=== PATIENT | female | born 1960 | race Caucasian/White ===

== ENCOUNTER 2018-03-25 17:14 | Inpatient (IN) | payer OTHER ==
[2018-03-25 17:14] VITALS: BMI 19.1
[2018-03-25] MEDS ORDERED: Albuterol-Ipratrop 3 mg / 0.5 (3 ml) UD IH STA (19:21)
--- NOTE | 2018-03-25 20:10 | ED PDOC ---
Arrival/HPI - General Chief Complaint: Psychiatric Evaluation Historian: Patient - History of Present Illness Narrative History of Present Illness (Text): 03/25/18 20:11 58yo female with pmhx of anxiety, GERD who present with complaint of anxiety and depression.. States she became depressed when she found out that she will be evicted from her apartment, saw her psychiatrists who referred her to ED. She reports chest tightness, states she usually takes Prednisone, but didn't take it because she was upset. Also states she uses inhaler for her Asthma, but did not uses it today. Reports wheezing x days. Denies fever, chills, SI/HI, hallucination, any other complaint. Past Medical History - Provider Review Nursing Documentation Reviewed: Yes - Cardiac Hx Cardiac Disorders: No (DENIES BUT ON LIPITOR) - Pulmonary Hx Respiratory Disorders: No - Neurological Hx Neurological Disorder: No - HEENT Hx HEENT Disorder: No - Renal Hx Renal Disorder: Yes Hx Kidney Stones: Yes - Endocrine/Metabolic Hx Endocrine Disorders: No - Hematological/Oncological Hx Blood Disorders: No - Integumentary Hx Dermatological Disorder: No - Musculoskeletal/Rheumatological Hx Musculoskeletal Disorders: Yes Hx Herniated Disk: Yes Hx Osteoporosis: Yes Other/Comment: BACK AND NECK PROBLEMS - Gastrointestinal Hx Gastrointestinal Disorders: No - Genitourinary/Gynecological Hx Genitourinary Disorders: No - Psychiatric Hx Psychophysiologic Disorder: Yes Hx Anxiety: Yes Hx Depression: Yes Hx Panic Disorder: Yes Hx Substance Use: No - Surgical History Other/Comment: HEMORRHOIDECTOMY - Anesthesia Hx Anesthesia: Yes Hx Anesthesia Reactions: No Hx Malignant Hyperthermia: No Family/Social History - Physician Review Nursing Documentation Reviewed: Yes Family/Social History: Unknown Family HX Smoking Status: Light Smoker < 10 Cigarettes Daily Hx Alcohol Use: Yes Hx Substance Use: No Allergies/Home Meds Allergies/Adverse Reactions: Allergies No Known Allergies Allergy (Verified 05/22/17 07:59) Home Medications: Home Meds Medication Instructions Recorded Confirmed ALPRAZolam [Xanax] 2 mg PO BID 05/22/17 03/25/18 Paroxetine HCl [Paxil] 20 mg PO DAILY 05/22/17 03/25/18 RX: Aspirin 81 mg PO DAILY 05/22/17 03/25/18 Ergocalciferol [Drisdol 50,000 1 cap PO Q7D 03/25/18 03/25/18 Intl Units Cap] Omeprazole 1 cap PO DAILY 03/25/18 03/25/18 RX: Celecoxib [celeBREX] 1 cap PO BID PRN 03/25/18 03/25/18 RX: Gabapentin [Neurontin] 1 cap PO BID 03/25/18 03/25/18 RX: Gabapentin [Neurontin] 1 cap PO BID 03/25/18 03/25/18 Review of Systems - Physician Review All systems were reviewed & negative as marked: Yes - Review of Systems Constitutional: Normal Eyes: Normal ENT: Normal Respiratory: Normal Cardiovascular: Normal Gastrointestinal: Normal Genitourinary Female: Normal Musculoskeletal: Normal Skin: Normal Neurological: Normal Endocrine: Normal Hemo/Lymphatic: Normal Psychiatric: Anxiety, Depression Physical Exam Vital Signs Reviewed: Yes Vital Signs Temp Pulse Resp BP Pulse Ox 03/25/18 19:41 97.6 F 66 18 143/90 96 Temperature: Afebrile Blood Pressure: Normal Pulse: Regular Respiratory Rate: Normal Appearance: Positive for: Well-Appearing, Non-Toxic, Comfortable, Other (Teary) Pain Distress: None Mental Status: Positive for: Alert and Oriented X 3 - Systems Exam Head: Present: Atraumatic, Normocephalic Pupils: Present: PERRL Extroacular Muscles: Present: EOMI Conjunctiva: Present: Normal Mouth: Present: Moist Mucous Membranes Neck: Present: Normal Range of Motion Respiratory/Chest: Present: Clear to Auscultation, Good Air Exchange, Wheezes (Diffuse expiratory wheeze). No: Respiratory Distress, Accessory Muscle Use, Decreased Breath Sounds, Retracting, Rhonchi Cardiovascular: Present: Regular Rate and Rhythm, Normal S1, S2. No: Murmurs Abdomen: No: Tenderness, Distention, Peritoneal Signs Back: Present: Normal Inspection Upper Extremity: Present: Normal Inspection. No: Cyanosis, Edema Lower Extremity: Present: Normal Inspection. No: Edema Neurological: Present: GCS=15, CN II-XII Intact, Speech Normal Skin: Present: Warm, Dry, Normal Color. No: Rashes Psychiatric: Present: Alert, Oriented x 3, Normal Insight, Normal Concentration, Depressed Mood Medical Decision Making ED Course and Treatment: 03/26/18 00:14 PT present to ED for stated history. she appeared depressed, teary in ED Labs EKG CXR PES Lab was reviewed and was nonspecific. UDS + THC EKG NSR @ 64bpm CXR NAD PT was medically cleared in ED for psych evaluation she was seen in ED by JANNETTE Abreu. JANNETTE Abreu DC with the tuyere fitter and pt was admitted to Dr. Hollins. While in ED pt reported history of hemorrhoid . States she usually apply lidocaine cream to the area, but didn't have it with her. she requested for a cream and Anusol cream was given. Her Lung exam improved in ED. She smokes tobacco. She was not hypoxic in ED. - RAD Interpretation Radiology Orders: 03/25/18 19:20 CHEST PORTABLE [RAD] Stat - Medication Orders Current Medication Orders: Discontinued Medications Albuterol/Ipratropium (Duoneb 3 Mg/0.5 Mg (3 Ml) Ud) 3 ml IH STAT STA Stop: 03/25/18 19:22 Albuterol/Ipratropium (Duoneb 3 Mg/0.5 Mg (3 Ml) Ud) 3 ml IH STAT STA Stop: 03/25/18 19:22 Disposition/Present on Arrival - Present on Arrival Any Indicators Present on Arrival: No History of DVT/PE: No History of Uncontrolled Diabetes: No Urinary Catheter: No History of Decub. Ulcer: No History Surgical Site Infection Following: None - Disposition Have Diagnosis and Disposition been Completed?: Yes Diagnosis: Depression, Anxiety, Asthma, Hemorrhoid Disposition: HOSPITALIZED Disposition Time: 21:50 Patient Plan: Admission Patient Problems: Current Active Problems Problem Status Onset Anxiety Acute Asthma Acute Depression Acute Hemorrhoid Acute Condition: FAIR
[2018-03-25 20:13] LABS: BASO # 0.02 K/mm3 (0.0-2.0); BASO % 0.2 % (0.0-3.0); EOS # 0.1 (0.0-0.7); EOS % 0.7 % (1.5-5.0); GRAN # 8.14 (1.4-6.5); GRAN % 65.4 % (50.0-68.0); HEMOGLOBIN 14.3 g/dL (12.0-16.0); LYMPH # 3.1 (1.2-3.4); LYMPH % 25.2 % (22.0-35.0); MEAN CELL VOLUME 90.1 fl (80.0-105.0); MEAN CORPUSCULAR HEMOGLOBIN 30.8 pg (25.0-35.0); MEAN CORPUSCULAR HGB CONC 34.1 g/dl (31.0-37.0); MEAN PLATELET VOLUME 9.7 fl (7.0-11.0); MONO # 1.1 (0.1-0.6); MONO % 8.5 % (1.0-6.0); RBC 4.65 10^6/uL (3.5-6.1); RED CELL DISTRIBUTION WIDTH 13.7 % (11.5-14.5); WHITE BLOOD COUNT 12.4 10^3/uL (4.5-11.0)
[2018-03-25 20:21] LABS: ACETAMINOPHEN < 10.0 ug/ml (10.0-20.0); SALICYLATE < 1 mg/dL (2.0-20.0)
[2018-03-25 20:22] LABS: ALB/GLOB RATIO 1.3 (1.1-1.8); ALBUMIN 4.1 g/dL (3.0-4.8); ALT/SGPT 24 U/L (7-56); AST/SGOT 26 U/L (14-36); BLOOD UREA NITROGEN 19 mg/dL (7-21); CALCIUM 9.3 mg/dL (8.4-10.5); GFR NON-AFRICAN AMERICAN > 60
[2018-03-25 20:47] LABS: URINE BILIRUBIN NEGATIVE (NEGATIVE); URINE BLOOD TRACE-LYSED (NEGATIVE); URINE GLUCOSE (UA) NEGATIVE (NEGATIVE); URINE LEUKOCYTE ESTERASE NEGATIVE Leu/uL (NEGATIVE); URINE PROTEIN NEGATIVE mg/dL (<30 mg/dL); URINE UROBILINOGEN 0.2 E.U./dL (<1 E.U./dL)
[2018-03-25 20:49] LABS: URINE APPEARANCE CLEAR (CLEAR); URINE COLOR LIGHT YELLOW (YELLOW)
[2018-03-25 20:56] LABS: URINE BACTERIA NEG (NEG); URINE EPITHELIAL CELLS 0 - 2 /hpf (0-5); URINE RBC 0 - 2 /hpf (0-2); URINE WBC NEGATIVE /hpf (0-6)
[2018-03-25 21:03] LABS: OPIATES, UR NEGATIVE (NEGATIVE); PHENCYCLIDINE, UR NEGATIVE (NEGATIVE)
[2018-03-25 21:10] LABS: BARBITURATES, UR NEGATIVE (NEGATIVE); BENZODIAZEPINES, UR POSITIVE (NEGATIVE)
[2018-03-25] MEDS ORDERED: Hydrocortisone-Pramoxine 1%-1% Foam(10 gm) TOP STA (22:01)
[2018-03-25] MEDS ORDERED: Hydrocortisone 2.5% Rectal Cream(30 gm) PR STA (22:10)
[2018-03-25] MEDS: Albuterol-Ipratrop 3 mg / 0.5 (3 ml) UD IH STA (22:39)
[2018-03-26 00:30] VITALS: O2SAT 98
[2018-03-26] MEDS ORDERED: Magnesium Hydroxide Susp 30 ml UD PO PRN (01:07)
--- NOTE | 2018-03-26 07:16 | PCM.BM ---
<Dung Kyle O - Last Filed: 03/26/18 07:14> Treatment Plan Problems - Problems identified on initial assessmt Hoplessness Date Initiated: 03/26/18 Time Initiated: 03:00 Assessment reference: NA Status: Active Ineffective coping Date Initiated: 03/26/18 Assessment reference: NA Status: Active Treatment assets and liabiliti Patient Assests: ADL independent, good support system Patient Liabilities: poor support system, substance abuse - Milieu Protocol Maintain good personal hygiene: daily Encourage regular showers, daily Remind patient to perform daily oral care, daily Assist patient to perform ADL's Maintain personal safety: daily Educate patient to report safety concerns to staff, daily Monitor environment for contraband/sharps Medication safety: Monitor for expected outcome, potential side effects: daily, Assess barriers to learning: daily, Assess readiness for medication education: daily Family Contact Family involvement: Family/SO is involved Family contact: Family has been contacted by patient - Goals for Treatment Patient goals for treatment: I want to get better, too much stuff going on Discharge/Continuing Care - Education Needs Education Needs: Patient Medication, Patient Coping Skills - Discharge Discharge Criteria: Normal sleep pattern <Gunjan Florez A - Last Filed: 03/26/18 16:03> - Diagnosis (1) MDD (major depressive disorder) Status: Acute Interventions: 03/26/18 16:03 Psychoeducation Psychopharmacology/adjustment of medications as needed/ monitoring possible side effects Evaluate pt on daily basis Compliance with medications and follow up appointments Suicide and homicide risk assessment and prevention Relapse prevention Reduction of symptoms Improve functional status Family involvement As outpatient: cognitive behavioral therapy (2) Cannabis abuse Status: Acute Interventions: 03/26/18 16:03 Maintaining sobriety Relapse prevention Possible rehabilitation Motivational interviewing 12-step programs: AA meetings (3) Anxiety Status: Acute Interventions: 03/26/18 16:04 Psychoeducation Psychopharmacology/adjustment of medications as needed/ monitoring possible side effects Evaluate pt on daily basis Discussion of importance of being compliant with medications and follow up appointments Suicide and homicide risk assessment and prevention, coping strategies, safety plan Reduction of symptoms Relaxation techniques and breathing exercises Improve functional status Family involvement Cognitive behavioral therapy as outpatient <Farida Palmer Y - Last Filed: 03/26/18 17:13> Family Contact - Outside Agency Dr. Victorino Amador Care involvment: Following patient during stay, Information-sharing Agency contact name: Dr. Amador
[2018-03-26] MEDS ORDERED: Potassium Chloride 20 mEq ER Tab PO STA (07:23)
[2018-03-26] MEDS: Alum-Mag Hydrox-Simethicone Susp (30 mL) PO PRN ×2 (07:43→17:39)
[2018-03-26 08:37] LABS: GLUCOSE,FASTING 129 mg/dL (65-110); HDL CHOLESTEROL 89 mg/dL (29-60)
[2018-03-26 08:47] LABS: LDL CHOLESTEROL 106 mg/dL (0-129)
--- NOTE | 2018-03-26 08:51 | RAD ---
Date of service: 03/25/2018 HISTORY: SOB COMPARISON: No prior. FINDINGS: LUNGS: No active pulmonary disease. PLEURA: No significant pleural effusion identified, no pneumothorax apparent. CARDIOVASCULAR: No aortic atherosclerotic calcification present. Normal cardiac size. No pulmonary vascular congestion. OSSEOUS STRUCTURES: No significant abnormalities. VISUALIZED UPPER ABDOMEN: Normal. OTHER FINDINGS: None. IMPRESSION: No active disease.
[2018-03-26 09:50] LABS: TROPONIN I < 0.01 ng/mL
--- NOTE | 2018-03-26 10:18 | CT ---
Date of service: 03/26/2018 PROCEDURE: CT HEAD WITHOUT CONTRAST. HISTORY: Patient states she fell and hit her head COMPARISON: None available. TECHNIQUE: Axial computed tomography images were obtained through the head/brain without intravenous contrast. Radiation dose: Total exam DLP = 753.93 mGy-cm. This CT exam was performed using one or more of the following dose reduction techniques: Automated exposure control, adjustment of the mA and/or kV according to patient size, and/or use of iterative reconstruction technique. FINDINGS: HEMORRHAGE: No intracranial hemorrhage. BRAIN: No mass effect or edema. No atrophy or chronic microvascular ischemic changes. VENTRICLES: Unremarkable. No hydrocephalus. CALVARIUM: Unremarkable. PARANASAL SINUSES: Unremarkable as visualized. No significant inflammatory changes. MASTOID AIR CELLS: Unremarkable as visualized. No inflammatory changes. OTHER FINDINGS: None. IMPRESSION: Normal CT of the Head.
[2018-03-26] MEDS ORDERED: Albuterol-Ipratrop 3 mg / 0.5 (3 ml) UD IH PRN (12:01)
--- NOTE | 2018-03-26 13:35 | CP.PCM.CON ---
<Redd Sylvester - Last Filed: 03/26/18 13:52> History of Present Illness - History of Present Illness History of Present Illness: PYG1 Medicine Consult Note for Dr. Salazar Reason for consult: Chest Pain Patient is a 58-year-old Female with PMH GERD, Asthma, Anxiety, and Depression who was referred to the ED by her Psychiatrist for a chief complaint of anxiety and depression. Patient was subsequently admitted to Psychiatric Unit. Patient also complained of chest pain x3 days. Patient localizes the pain to her right axilla/pectoralis muscle, non-radiating, and pressure-like in quality. Patient quantifies the pain as 8/10 at its worst. Patient states that the pain is provoked by certain positions, worsened with inspiration, and it is provoked by coughing. Patient otherwise denies nausea, vomiting, diaphoresis, palpitations, shortness of breath, headache, blurred vision, numbness, tingling and/or weakness. Of note, Patient also complains of constipation (chronic). Review of Systems - Review of Systems All systems: reviewed and no additional remarkable complaints except Review of Systems: ROS is negative other than mentioned in the HPI. Past Patient History - Past Medical History & Family History Past Medical History?: Yes - Past Social History Smoking Status: Light Smoker < 10 Cigarettes Daily - CARDIAC Hx Cardiac Disorders: No (DENIES BUT ON LIPITOR) - PULMONARY Hx Respiratory Disorders: No - NEUROLOGICAL Hx Neurological Disorder: No - HEENT Hx HEENT Problems: No - RENAL Hx Chronic Kidney Disease: Yes Hx Kidney Stones: Yes - ENDOCRINE/METABOLIC Hx Endocrine Disorders: No - HEMATOLOGICAL/ONCOLOGICAL Hx Blood Disorders: No - INTEGUMENTARY Hx Dermatological Problems: No - MUSCULOSKELETAL/RHEUMATOLOGICAL Hx Musculoskeletal Disorders: Yes Hx Herniated Disk: Yes Hx Osteoporosis: Yes Other/Comment: BACK AND NECK PROBLEMS - GASTROINTESTINAL Hx Gastrointestinal Disorders: No - GENITOURINARY/GYNECOLOGICAL Hx Genitourinary Disorders: No - PSYCHIATRIC Hx Depression: Yes Hx Substance Use: Yes - SURGICAL HISTORY Other/Comment: HEMORRHOIDECTOMY - ANESTHESIA Hx Anesthesia: Yes Hx Anesthesia Reactions: No Hx Malignant Hyperthermia: No Meds Allergies/Adverse Reactions: Allergies Allergy/AdvReac Type Severity Reaction Status Date / Time No Known Allergies Allergy Verified 03/26/18 06:27 - Medications Medications: Current Medications Acetaminophen (Tylenol 325mg Tab) 325 mg PO Q6H PRN PRN Reason: Pain, Mild (1-3) Last Admin: 03/26/18 07:43 Dose: 325 mg Al Hydrox/Mg Hydrox/Simethicone (Maalox Plus 30 Ml) 30 ml PO DAILY PRN PRN Reason: Dyspepsia Last Admin: 03/26/18 07:43 Dose: 30 ml Albuterol/Ipratropium (Duoneb 3 Mg/0.5 Mg (3 Ml) Ud) 3 ml IH [id number] PRN PRN Reason: Shortness of Breath Alprazolam (Xanax) 2 mg PO TID PRN; Protocol PRN Reason: Anxiety Last Admin: 03/26/18 07:43 Dose: 2 mg Magnesium Hydroxide (Milk Of Magnesia) 30 ml PO DAILY PRN PRN Reason: Constipation Pantoprazole Sodium (Protonix Ec Tab) 40 mg PO 0600 RANJAN Paroxetine HCl (Paxil) 20 mg PO DAILY RANJAN Last Admin: 03/26/18 09:35 Dose: 20 mg Polyethylene Glycol (Miralax) 17 gm PO DAILY RANJAN Physical Exam - Constitutional Appears: Non-toxic, No Acute Distress - Head Exam Head Exam: ATRAUMATIC, NORMAL INSPECTION, NORMOCEPHALIC - Eye Exam Eye Exam: EOMI, Normal appearance, PERRL Pupil Exam: NORMAL ACCOMODATION - ENT Exam ENT Exam: Mucous Membranes Moist, Normal Exam - Neck Exam Neck exam: Positive for: Normal Inspection. Negative for: Lymphadenopathy, Thyromegaly - Respiratory Exam Respiratory Exam: Chest Wall Tenderness (right-sided), Clear to Auscultation Bilateral, NORMAL BREATHING PATTERN. absent: Wheezes, Respiratory Distress - Cardiovascular Exam Cardiovascular Exam: REGULAR RHYTHM - GI/Abdominal Exam GI & Abdominal Exam: Normal Bowel Sounds, Soft. absent: Distended, Guarding, Organomegaly, Rebound, Rigid, Tenderness - Back Exam Back exam: NORMAL INSPECTION - Neurological Exam Neurological exam: Alert, Oriented x3 - Psychiatric Exam Psychiatric exam: Anxious - Skin Skin Exam: Dry, Intact, Normal Color, Warm Results - Vital Signs Recent Vital Signs: Last Vital Signs Temp 97.7 F 03/26/18 07:33 Pulse 69 03/26/18 07:33 Resp 20 03/26/18 07:33 BP 104/70 03/26/18 07:33 Pulse Ox 98 03/25/18 23:50 - Labs Result Diagrams: 03/25/18 20:08 03/25/18 20:08 Labs: Laboratory Results - last 24 hr 03/25/18 03/25/18 03/25/18 20:08 20:08 20:08 WBC 12.4 H RBC 4.65 Hgb 14.3 Hct 41.9 MCV 90.1 MCH 30.8 MCHC 34.1 RDW 13.7 Plt Count 316 MPV 9.7 Gran % 65.4 Lymph % (Auto) 25.2 Hunt % (Auto) 8.5 H Eos % (Auto) 0.7 L Baso % (Auto) 0.2 Gran # 8.14 H Lymph # (Auto) 3.1 Hunt # (Auto) 1.1 H Eos # (Auto) 0.1 Baso # (Auto) 0.02 Sodium 139 Potassium 3.5 L Chloride 102 Carbon Dioxide 31 Anion Gap 9 L BUN 19 Creatinine 0.6 L Est GFR ( Amer) > 60 Est GFR (Non-Af Amer) > 60 Random Glucose 95 Fasting Glucose Calcium 9.3 Magnesium 2.1 Total Bilirubin 0.6 AST 26 ALT 24 Alkaline Phosphatase 94 Total Creatine Kinase Troponin I Total Protein 7.2 Albumin 4.1 Globulin 3.1 Albumin/Globulin Ratio 1.3 Triglycerides Cholesterol LDL Cholesterol Direct HDL Cholesterol TSH 3rd Generation Urine Color Urine Appearance Urine pH Ur Specific Rumsey Urine Protein Urine Glucose (UA) Urine Ketones Urine Blood Urine Nitrate Urine Bilirubin Urine Urobilinogen Ur Leukocyte Esterase Urine RBC Urine WBC Ur Epithelial Cells Urine Bacteria Salicylates < 1 L Urine Opiates Screen Urine Methadone Screen Acetaminophen < 10.0 L Ur Barbiturates Screen Ur Phencyclidine Scrn Ur Amphetamines Screen U Benzodiazepines Scrn U Oth Cocaine Metabols U Cannabinoids Screen Alcohol, Quantitative 03/25/18 03/25/18 03/25/18 20:08 20:26 20:26 WBC RBC Hgb Hct MCV MCH MCHC RDW Plt Count MPV Gran % Lymph % (Auto) Hunt % (Auto) Eos % (Auto) Baso % (Auto) Gran # Lymph # (Auto) Hunt # (Auto) Eos # (Auto) Baso # (Auto) Sodium Potassium Chloride Carbon Dioxide Anion Gap BUN Creatinine Est GFR ( Amer) Est GFR (Non-Af Amer) Random Glucose Fasting Glucose Calcium Magnesium Total Bilirubin AST ALT Alkaline Phosphatase Total Creatine Kinase Troponin I Total Protein Albumin Globulin Albumin/Globulin Ratio Triglycerides Cholesterol LDL Cholesterol Direct HDL Cholesterol TSH 3rd Generation Urine Color Light yellow Urine Appearance Clear Urine pH 7.0 Ur Specific Rumsey 1.010 Urine Protein Negative Urine Glucose (UA) Negative Urine Ketones Negative Urine Blood Trace-lysed H Urine Nitrate Negative Urine Bilirubin Negative Urine Urobilinogen 0.2 Ur Leukocyte Esterase Negative Urine RBC 0 - 2 Urine WBC Negative Ur Epithelial Cells 0 - 2 Urine Bacteria Neg Salicylates Urine Opiates Screen Negative Urine Methadone Screen Negative Acetaminophen Ur Barbiturates Screen Negative Ur Phencyclidine Scrn Negative Ur Amphetamines Screen Negative U Benzodiazepines Scrn Positive H U Oth Cocaine Metabols Negative U Cannabinoids Screen Positive H Alcohol, Quantitative < 10 03/26/18 03/26/18 03/26/18 08:00 08:00 09:10 WBC RBC Hgb Hct MCV MCH MCHC RDW Plt Count MPV Gran % Lymph % (Auto) Hunt % (Auto) Eos % (Auto) Baso % (Auto) Gran # Lymph # (Auto) Hunt # (Auto) Eos # (Auto) Baso # (Auto) Sodium Potassium Chloride Carbon Dioxide Anion Gap BUN Creatinine Est GFR ( Amer) Est GFR (Non-Af Amer) Random Glucose Fasting Glucose 129 H Calcium Magnesium Total Bilirubin AST ALT Alkaline Phosphatase Total Creatine Kinase 34 L Troponin I < 0.01 Total Protein Albumin Globulin Albumin/Globulin Ratio Triglycerides 73 Cholesterol 215 H LDL Cholesterol Direct 106 HDL Cholesterol 89 H TSH 3rd Generation 0.15 L Urine Color Urine Appearance Urine pH Ur Specific Rumsey Urine Protein Urine Glucose (UA) Urine Ketones Urine Blood Urine Nitrate Urine Bilirubin Urine Urobilinogen Ur Leukocyte Esterase Urine RBC Urine WBC Ur Epithelial Cells Urine Bacteria Salicylates Urine Opiates Screen Urine Methadone Screen Acetaminophen Ur Barbiturates Screen Ur Phencyclidine Scrn Ur Amphetamines Screen U Benzodiazepines Scrn U Oth Cocaine Metabols U Cannabinoids Screen Alcohol, Quantitative Assessment & Plan - Assessment and Plan (Free Text) Assessment: Patient is a 58-year-old Female with PMH GERD, Asthma, Anxiety, and Depression who was referred to the ED by her Psychiatrist for a chief complaint of anxiety and depression. Patient was subsequently admitted to Psychiatric Unit. Patient also complained of chest pain x3 days. Atypical Chest Pain - Unlikely of cardiac origin: Chest pain is reproducible on exam, worsens with cough, inspiration, and exacerbated by certain positions - ACS rule-out: * Serial troponins ordered 03/26: Trop x1 negative. Repeat @15:09 and @21:09. * Chest X-ray obtained 03/25: No acute disease appreciated (See report for details) * EKG obtained 03/26: NSR * Tylenol PRN for pain History of Asthma - Patient denies shortness of breath - Chest X-ray obtained 03/25: No acute disease appreciated (See report for details) - Duonebs [id number] PRN for shortness of breath - Given in ED: Prednisone 60mg PO ONCE History of GERD - Maalox 30ml johnathan PO PRN - Start: Protonix 40mg PO Daily Constipation - Start: Miralax 17g Daily - Encouraged Patient to eat and increase water intake Tobacco Use Disorder - Encouraged complete smoking cessation and explained risks associated with continuation of smoking - Nicotine patch offered; Patient refused, stating she smokes only 1-2 cigarettes per day Neuro - Patient states she fell and hit her head due to her chest pain - CT of head without contrast obtained and revealed normal CT of head (See report for details) <Femi Parrish - Last Filed: 03/26/18 18:09> Meds - Medications Medications: Current Medications Acetaminophen (Tylenol 325mg Tab) 325 mg PO Q6H PRN PRN Reason: Pain, Mild (1-3) Last Admin: 03/26/18 17:39 Dose: 325 mg Al Hydrox/Mg Hydrox/Simethicone (Maalox Plus 30 Ml) 30 ml PO DAILY PRN PRN Reason: Dyspepsia Last Admin: 03/26/18 17:39 Dose: 30 ml Albuterol/Ipratropium (Duoneb 3 Mg/0.5 Mg (3 Ml) Ud) 3 ml IH [id number] PRN PRN Reason: Shortness of Breath Alprazolam (Xanax) 1 mg PO BID PRN; Protocol PRN Reason: Anxiety Last Admin: 03/26/18 17:35 Dose: 1 mg Alprazolam (Xanax) 2 mg PO HS PRN; Protocol PRN Reason: anxiety/insomnia Aspirin (Aspirin Chewable) 81 mg PO DAILY RANJAN Last Admin: 03/26/18 17:35 Dose: 81 mg Duloxetine HCl (Cymbalta) 20 mg PO DAILY RANJAN Last Admin: 03/26/18 17:42 Dose: 20 mg Gabapentin (Neurontin) 300 mg PO HS RANJAN; Protocol Gabapentin (Neurontin) 100 mg PO BID RANJAN; Protocol Last Admin: 03/26/18 17:35 Dose: 100 mg Lorazepam (Ativan) 2 mg IM Q6H PRN PRN Reason: Agitation Magnesium Hydroxide (Milk Of Magnesia) 30 ml PO DAILY PRN PRN Reason: Constipation Pantoprazole Sodium (Protonix Ec Tab) 40 mg PO 0600 RANJAN Paroxetine HCl (Paxil) 10 mg PO DAILY RANJAN Polyethylene Glycol (Miralax) 17 gm PO DAILY RANJAN Ziprasidone (Geodon Inj) 20 mg IM Q6H PRN; Protocol PRN Reason: severe agitaiton/psychosis Results - Vital Signs Recent Vital Signs: Last Vital Signs Temp 97.7 F 03/26/18 07:33 Pulse 69 03/26/18 07:33 Resp 20 03/26/18 07:33 BP 104/70 03/26/18 07:33 Pulse Ox 98 03/25/18 23:50 - Labs Result Diagrams: 03/25/18 20:08 03/25/18 20:08 Labs: Laboratory Results - last 24 hr 03/25/18 03/25/18 03/25/18 20:08 20:08 20:08 WBC 12.4 H RBC 4.65 Hgb 14.3 Hct 41.9 MCV 90.1 MCH 30.8 MCHC 34.1 RDW 13.7 Plt Count 316 MPV 9.7 Gran % 65.4 Lymph % (Auto) 25.2 Hunt % (Auto) 8.5 H Eos % (Auto) 0.7 L Baso % (Auto) 0.2 Gran # 8.14 H Lymph # (Auto) 3.1 Hunt # (Auto) 1.1 H Eos # (Auto) 0.1 Baso # (Auto) 0.02 Sodium 139 Potassium 3.5 L Chloride 102 Carbon Dioxide 31 Anion Gap 9 L BUN 19 Creatinine 0.6 L Est GFR ( Amer) > 60 Est GFR (Non-Af Amer) > 60 Random Glucose 95 Fasting Glucose Calcium 9.3 Magnesium 2.1 Total Bilirubin 0.6 AST 26 ALT 24 Alkaline Phosphatase 94 Total Creatine Kinase Troponin I Total Protein 7.2 Albumin 4.1 Globulin 3.1 Albumin/Globulin Ratio 1.3 Triglycerides Cholesterol LDL Cholesterol Direct HDL Cholesterol TSH 3rd Generation Urine Color Urine Appearance Urine pH Ur Specific Rumsey Urine Protein Urine Glucose (UA) Urine Ketones Urine Blood Urine Nitrate Urine Bilirubin Urine Urobilinogen Ur Leukocyte Esterase Urine RBC Urine WBC Ur Epithelial Cells Urine Bacteria Salicylates < 1 L Urine Opiates Screen Urine Methadone Screen Acetaminophen < 10.0 L Ur Barbiturates Screen Ur Phencyclidine Scrn Ur Amphetamines Screen U Benzodiazepines Scrn U Oth Cocaine Metabols U Cannabinoids Screen Alcohol, Quantitative 03/25/18 03/25/18 03/25/18 20:08 20:26 20:26 WBC RBC Hgb Hct MCV MCH MCHC RDW Plt Count MPV Gran % Lymph % (Auto) Hunt % (Auto) Eos % (Auto) Baso % (Auto) Gran # Lymph # (Auto) Hunt # (Auto) Eos # (Auto) Baso # (Auto) Sodium Potassium Chloride Carbon Dioxide Anion Gap BUN Creatinine Est GFR ( Amer) Est GFR (Non-Af Amer) Random Glucose Fasting Glucose Calcium Magnesium Total Bilirubin AST ALT Alkaline Phosphatase Total Creatine Kinase Troponin I Total Protein Albumin Globulin Albumin/Globulin Ratio Triglycerides Cholesterol LDL Cholesterol Direct HDL Cholesterol TSH 3rd Generation Urine Color Light yellow Urine Appearance Clear Urine pH 7.0 Ur Specific Rumsey 1.010 Urine Protein Negative Urine Glucose (UA) Negative Urine Ketones Negative Urine Blood Trace-lysed H Urine Nitrate Negative Urine Bilirubin Negative Urine Urobilinogen 0.2 Ur Leukocyte Esterase Negative Urine RBC 0 - 2 Urine WBC Negative Ur Epithelial Cells 0 - 2 Urine Bacteria Neg Salicylates Urine Opiates Screen Negative Urine Methadone Screen Negative Acetaminophen Ur Barbiturates Screen Negative Ur Phencyclidine Scrn Negative Ur Amphetamines Screen Negative U Benzodiazepines Scrn Positive H U Oth Cocaine Metabols Negative U Cannabinoids Screen Positive H Alcohol, Quantitative < 10 03/26/18 03/26/18 03/26/18 08:00 08:00 09:10 WBC RBC Hgb Hct MCV MCH MCHC RDW Plt Count MPV Gran % Lymph % (Auto) Hunt % (Auto) Eos % (Auto) Baso % (Auto) Gran # Lymph # (Auto) Hunt # (Auto) Eos # (Auto) Baso # (Auto) Sodium Potassium Chloride Carbon Dioxide Anion Gap BUN Creatinine Est GFR ( Amer) Est GFR (Non-Af Amer) Random Glucose Fasting Glucose 129 H Calcium Magnesium Total Bilirubin AST ALT Alkaline Phosphatase Total Creatine Kinase 34 L Troponin I < 0.01 Total Protein Albumin Globulin Albumin/Globulin Ratio Triglycerides 73 Cholesterol 215 H LDL Cholesterol Direct 106 HDL Cholesterol 89 H TSH 3rd Generation 0.15 L Urine Color Urine Appearance Urine pH Ur Specific Rumsey Urine Protein Urine Glucose (UA) Urine Ketones Urine Blood Urine Nitrate Urine Bilirubin Urine Urobilinogen Ur Leukocyte Esterase Urine RBC Urine WBC Ur Epithelial Cells Urine Bacteria Salicylates Urine Opiates Screen Urine Methadone Screen Acetaminophen Ur Barbiturates Screen Ur Phencyclidine Scrn Ur Amphetamines Screen U Benzodiazepines Scrn U Oth Cocaine Metabols U Cannabinoids Screen Alcohol, Quantitative 03/26/18 13:50 WBC RBC Hgb Hct MCV MCH MCHC RDW Plt Count MPV Gran % Lymph % (Auto) Hunt % (Auto) Eos % (Auto) Baso % (Auto) Gran # Lymph # (Auto) Hunt # (Auto) Eos # (Auto) Baso # (Auto) Sodium Potassium Chloride Carbon Dioxide Anion Gap BUN Creatinine Est GFR ( Amer) Est GFR (Non-Af Amer) Random Glucose Fasting Glucose Calcium Magnesium Total Bilirubin AST ALT Alkaline Phosphatase Total Creatine Kinase 35 Troponin I < 0.01 Total Protein Albumin Globulin Albumin/Globulin Ratio Triglycerides Cholesterol LDL Cholesterol Direct HDL Cholesterol TSH 3rd Generation Urine Color Urine Appearance Urine pH Ur Specific Rumsey Urine Protein Urine Glucose (UA) Urine Ketones Urine Blood Urine Nitrate Urine Bilirubin Urine Urobilinogen Ur Leukocyte Esterase Urine RBC Urine WBC Ur Epithelial Cells Urine Bacteria Salicylates Urine Opiates Screen Urine Methadone Screen Acetaminophen Ur Barbiturates Screen Ur Phencyclidine Scrn Ur Amphetamines Screen U Benzodiazepines Scrn U Oth Cocaine Metabols U Cannabinoids Screen Alcohol, Quantitative Attending/Attestation - Attestation I have personally seen and examined this patient.: Yes I have fully participated in the care of the patient.: Yes I have reviewed all pertinent clinical information: Yes Notes (Text): Atypical CP: very unlikely to be cardiac etiology. Reproducible right sided chest pain. EKG and trop -ve Most likely musculoskeletal from coughing recommend some ibuprofen and cough suppressants Asthma Duo nebs PRN GERD PPI Will sign off this case today, please re-consult if needed. 03/26/18 18:07
[2018-03-26 14:27] LABS: TROPONIN I < 0.01 ng/mL
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
--- NOTE | 2018-03-26 16:22 | CARD ---
APPROVED REPORT Date of service: 03/25/2018 EKG Measurement Heart [id number] <Conclusion> Normal sinus rhythm Normal ECG
[2018-03-26 21:25] LABS: TROPONIN I < 0.01 ng/mL
[2018-03-27] MEDS: POLYETHYLENE GLYCOL 3350 17 GM/Dose PACKET PO SCH (09:26)
--- NOTE | 2018-03-27 10:46 | PCM.PYCHPN ---
Psychiatric Progress Note - Psychiatric Progress Note Patient seen today, length of contact: 35 min Problems Identified/Issues Discussed: I reviewed assessment and recent notes. I met with patient at bedside. She is alert and well-oriented to circumstances. Grooming is acceptable and thought pr ocess is coherent. She easily communicates her needs. Indicates that she remains depressed and anxious with restless sleep. Tolerating her medications and denies any major s/e. She continues to c/o intermittent CP, unchanged. Patient has been visible on the unit and socializing with peers. Of note: patient informed Dr. Sylvester that she fell and hit her forehead while she was on the unit. CT scan of the head (without contrast) was ordered. Diagnostic Results: Major depressive disorder, recurrent, severe questionable psychosis Generalized anxiety disorder Rule out PTSD Rule out panic disorder Cannabis abuse Medication Change: Yes (sonata started prn) Medical Record Reviewed: Yes Mental Status Examination - Mood Mood: Depressed, Anxious - Affect Affect: Flat (And tearful) - Formal Thought Process Formal Thought Process: No Impairment - Homicidal Ideation Homicidal Ideation: No Goal/Treatment Plan - Goal/Treatment Plan Progress Toward Problem(s) and Goals/Treatment Plan: * c/w current tx and plan * Vitals reviewed and noted below: Selected Entries 03/26/18 07:33 Temperature 97.7 F Pulse Rate 69 Respiratory 20 Rate Blood Pressure 104/70 * Paxil 10 mg HS cross tapered to Cymbalta 20 mg po daily for depression, anxiety, neuropathic pains * Remeron d/c'ed * Gabapentin 100 mg bid and HS * Xanax 1 mg po bid and 2 mg HS * Sonata 5 mg HS prn: insomnia * Head CT on 03/26/18: no acute findings
[2018-03-27] MEDS: Bacitracin Ointment 30 GM TUBE TOP SCH (11:55)
[2018-03-27] MEDS: Pantoprazole 40 mg EC Tab PO SCH (12:56)
[2018-03-27] MEDS: Alum-Mag Hydrox-Simethicone Susp (30 mL) PO PRN (20:50)
[2018-03-28] MEDS: Pantoprazole 40 mg EC Tab PO SCH (07:11)
[2018-03-28] MEDS: POLYETHYLENE GLYCOL 3350 17 GM/Dose PACKET PO SCH (08:57)
[2018-03-28] MEDS: Bacitracin Ointment 30 GM TUBE TOP SCH (09:02)
--- NOTE | 2018-03-28 09:22 | PCM.PYCHPN ---
Psychiatric Progress Note - Psychiatric Progress Note Patient seen today, length of contact: 35 min Problems Identified/Issues Discussed: I reviewed recent notes and met with patient in the dayroom. She was observed socializing with another patient. Patient remains alert and well-oriented to c ircumstances. Communicates her needs easily. Grooming is acceptable and thought process is coherent. Patient indicates that she feels "okay" though remains depressed and anxious with restless sleep despite taking sonata last night. She is tolerating her medications and denies any major s/e. She denies recurrence of CP today (this has been intermittent and ruled out by medicine to be cardiac in nature; ekg, troponins and cxr were all negative) Staff note that patient seems brighter and has positive interactions with family/visitors during visiting hours. Of note: patient informed Dr. Sylvester on Thursday03/26/18 that she fell and hit her forehead on the unit. CT scan of the head (without contrast) was ordered and returned negative. Diagnostic Results: Major depressive disorder, recurrent, severe questionable psychosis Generalized anxiety disorder Rule out PTSD Rule out panic disorder Cannabis abuse Medication Change: Yes (sonata and cymbalta increased) Medical Record Reviewed: Yes Mental Status Examination - Mood Mood: Depressed, Anxious - Affect Affect: Flat (And tearful) - Formal Thought Process Formal Thought Process: No Impairment - Homicidal Ideation Homicidal Ideation: No Goal/Treatment Plan - Goal/Treatment Plan Progress Toward Problem(s) and Goals/Treatment Plan: * c/w current tx and plan * Vitals reviewed and noted below: 03/26/18 03/27/18 07:33 07:23 Temperature 97.7 F 98.1 F Pulse Rate 69 77 Respiratory 20 20 Rate Blood Pressure 104/70 107/65 * Paxil 10 mg HS cross tapered to Cymbalta 20 mg po daily for depression, anxiety, neuropathic pains. Will increase Cymbalta to 20 mg po bid today, c/w Paxil at 10 mg HS * Remeron d/c'ed * Gabapentin 100 mg bid and HS * Xanax 1 mg po bid and 2 mg HS * Sonata 5 mg HS prn: insomnia increased to 10 mg po HS prn on 03/28/18 for continued insomnia * Head CT on 03/26/18: no acute findings
[2018-03-28] MEDS ORDERED: Ergocalciferol 50,000 Intl Units Cap PO SCH (13:30)
[2018-03-29] MEDS: Pantoprazole 40 mg EC Tab PO SCH (06:35)
[2018-03-29 07:05] VITALS: BP 116/83; PULSE 90; RESP 20; TEMP 97.9
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
[2018-03-29] MEDS: POLYETHYLENE GLYCOL 3350 17 GM/Dose PACKET PO SCH (09:03)
[2018-03-29] MEDS: Bacitracin Ointment 30 GM TUBE TOP SCH (09:03)
== END 2018-03-29 14:12 | disposition home or self-care (01) | DRG 430 ==
LOC: ED 17:14 → ERH 21:57 → PSYC 03-26 00:13
PROVIDERS: ADMIT Psychiatry & Neurology Psychiatry; ATTEND Psychiatry & Neurology Psychiatry
DX: F33.2 Major depressive disorder, recurrent severe without psychotic features (principal); F06.4 Anxiety disorder due to known physiological condition; N18.9 Chronic kidney disease, unspecified; F41.0 Panic disorder [episodic paroxysmal anxiety]; F12.10 Cannabis abuse, uncomplicated; F17.210 Nicotine dependence, cigarettes, uncomplicated; F22 Delusional disorders; F41.1 Generalized anxiety disorder; K21.9 Gastro-esophageal reflux disease without esophagitis; G89.29 Other chronic pain; J45.909 Unspecified asthma, uncomplicated; K59.00 Constipation, unspecified; K64.9 Unspecified hemorrhoids; M79.7 Fibromyalgia; M81.0 Age-related osteoporosis without current pathological fracture; W19.XXXA Unspecified fall, initial encounter; Z79.899 Other long term (current) drug therapy; Z82.49 Family history of ischemic heart disease and other diseases of the circulatory system; Z87.442 Personal history of urinary calculi; R07.89 Other chest pain